=== PATIENT | male | born 1965 | race Caucasian/White ===

== ENCOUNTER 2018-06-17 18:54 | Emergency (ER) | payer MEDICAID ==
[~2018-06-17] VITALS: Ht 177.8 cm; Wt 80.3 kg
[2018-06-17 20:15] VITALS: BP 160/100
--- NOTE | 2018-06-17 20:15 | NUR ---
Patient discharged to home in stable conditon. Written and verbal after care instructions given. Patient verbalizes understanding of instructions. WALKED OUT OF ER WITH NO DISTRESS NOTED
== END 2018-06-17 20:16 | disposition other institution (70) ==
LOC: ER 18:55
DX: B30.9 Viral conjunctivitis, unspecified (principal)
CPT/HCPCS: A4663